=== PATIENT | female | born 1945 | race Hispanic/Latino ===

== ENCOUNTER 2017-03-21 08:26 | Outpatient (CLI) | payer MEDICARE ==
--- NOTE | 2017-03-21 09:08 | XRay Report ---
RIGHT SHOULDER: History: Pain Routine views demonstrate normal bony and soft tissue structures with normal joint alignment of the shoulder. IMPRESSION: Normal study.
== END 2017-03-21 08:27 | disposition home or self-care (01) ==
LOC: SPVIMAG 08:26
PROVIDERS: ATTEND Orthopaedic Surgery Sports Medicine
DX: M25.511 Pain in right shoulder (principal)

== ENCOUNTER 2017-07-26 12:33 | Outpatient (CLI) | payer MEDICARE ==
--- NOTE | 2017-07-29 11:34 | Mammography Report ---
BILATERAL DIGITAL SCREENING MAMMOGRAM with CAD: 07/26/17 12:33:00 CLINICAL: Routine screening. COMPARISON:07/26/16 FINDINGS: The breasts are heterogeneously dense, which may obscure small masses. No mass, architectural distortion or suspicious calcifications. IMPRESSION: No mammographic evidence of malignancy. BI-RADS CATEGORY: 1 - - Negative RECOMMENDATION: Routine mammographic screening in one year. COMMENT: Patient follow-up letters are generated by our [employer] application.
== END 2017-07-26 12:34 | disposition home or self-care (01) ==
LOC: SPVWC 12:33
PROVIDERS: ATTEND Family Medicine
DX: Z12.31 Encounter for screening mammogram for malignant neoplasm of breast (principal)
CPT/HCPCS: 77067

== ENCOUNTER 2018-07-30 09:30 | Outpatient (CLI) | payer MEDICARE ==
--- NOTE | 2018-07-30 10:51 | Mammography Report ---
BILATERAL DIGITAL SCREENING MAMMOGRAM with CAD: 07/30/18 09:30:00 CLINICAL: Routine screening. COMPARISON:07/26/17 FINDINGS: The breasts are heterogeneously dense, which may obscure small masses. No mass, architectural distortion or suspicious calcifications. IMPRESSION: No mammographic evidence of malignancy. BI-RADS CATEGORY: 1 - - Negative RECOMMENDATION: Routine mammographic screening in one year. COMMENT: Patient follow-up letters are generated by our [employer] application.
== END 2018-07-30 09:31 | disposition home or self-care (01) ==
LOC: SPVWC 09:30
PROVIDERS: ATTEND Family Medicine
DX: Z12.31 Encounter for screening mammogram for malignant neoplasm of breast (principal)
CPT/HCPCS: 77067

== ENCOUNTER 2018-10-02 08:03 | Outpatient (CLI) | payer MEDICARE ==
--- NOTE | 2018-10-02 08:51 | Mammography Report ---
BONE DENSITY STUDY: DEFINITIONS: BMD = Bone Mineral Density T-score = BMD related to mean peak bone mass of young adult (mean expressed in Standard Deviation) Z-score = Age matched BMD expressed in SD World Health Organization (WHO) Diagnostic Criteria Normal T-score > -1 SD Osteopenia T-score between -1 and -2.4 SD Osteoporosis T-score -2.5 SD or below FINDINGS: The weighted average BMD of lumbar spine L1-L4 is 1.273 with a T-score of 2.1. The weighted average BMD of hip is 0.963 with a T-score of 0.2. IMPRESSION: The patient's T-score is diagnostic for normal bone density and low relative risk for fracture. NOTE: BMD is not the only risk factor for fracture; also consider factors such as the patient's age, risk of falling, previous osteoporotic fracture, family history of osteoporotic fractures, current smoker, and low body weight. Cheek's triangle is a region of interest in femur, predominantly of trabecular bone. It is not a true anatomic site, and ISCD does not recommend its use clinically.
== END 2018-10-02 08:04 | disposition home or self-care (01) ==
LOC: SPVWC 08:03
PROVIDERS: ATTEND Family Medicine
DX: Z78.0 Asymptomatic menopausal state (principal)
CPT/HCPCS: 77080

== ENCOUNTER 2019-08-03 11:10 | Outpatient (CLI) | payer MEDICARE ==
--- NOTE | 2019-08-03 14:05 | Mammography Report ---
DIGITAL SCREENING MAMMOGRAM WITH CAD, 08/03/2019 INDICATION: Routine screening mammography. TECHNIQUE: Digital bilateral 2D mammography was obtained in the craniocaudal and mediolateral obliq ue projections. This examination was interpreted with the benefit of Computer-Aided Detection analysi s. COMPARISON: 07/30/2018 FINDINGS: Breast Density: The breasts are heterogeneously dense, which may obscure small masses. There is no evidence of dominant mass, suspicious calcifications or architectural distortion in eithe r breast. IMPRESSION: No mammographic evidence of malignancy. Follow up recommendation: Routine yearly BI-RADS Category 1: Negative. A "normal" or negative report should not discourage follow up or biopsy of a clinically significant f inding. A written summary of these findings will be mailed to the patient. The patient will be entered into a mammography reporting system which will generate a reminder letter for the patient's next appointmen t at the appropriate interval. The [employer] recommends yearly mammograms starting at age 40 and continuing as l nat as a woman is in good health. Breast MRI is recommended for women with an approximate 20-25% or greater lifetime risk of breast cancer, including women with a strong family history of breast or ova bob cancer or who have been treated for Hodgkin's disease. Signer Name: Lazarus Briones MD Signed: 08/03/2019 2:01 PM Workstation Name: [id number]
== END 2019-08-03 11:11 | disposition home or self-care (01) ==
LOC: SPVWC 11:10
PROVIDERS: ATTEND Family Medicine
DX: Z12.31 Encounter for screening mammogram for malignant neoplasm of breast (principal)
CPT/HCPCS: 77067

== ENCOUNTER 2020-08-25 10:01 | Outpatient (CLI) | payer MEDICARE ==
--- NOTE | 2020-08-31 10:38 | Mammography Report ---
DIGITAL SCREENING MAMMOGRAM WITH CAD, 08/25/2020 CLINICAL INFORMATION / INDICATION: Routine screening mammography. TECHNIQUE: Digital bilateral 2D mammography was obtained in the craniocaudal and mediolateral obliqu e projections. COMPARISON: 08/03/2019, 07/26/2017, 07/26/2016 FINDINGS: Breast Density: The breasts are heterogeneously dense, which may obscure small masses. No dominant mass, suspicious calcifications, or architectural distortion in either breast. IMPRESSION: No mammographic evidence of malignancy. Follow up recommendation: Routine yearly BI-RADS Category 1: Negative. A "normal" or negative report should not discourage follow up or biopsy of a clinically significant f inding. A written summary of these findings will be mailed to the patient. The patient will be entered into a mammography reporting system which will generate a reminder letter for the patient's next appointmen t at the appropriate interval. The [employer] recommends yearly mammograms starting at age 40 and continuing as l nat as a woman is in good health. Breast MRI is recommended for women with an approximate 20-25% or greater lifetime risk of breast cancer, including women with a strong family history of breast or ova bob cancer or who have been treated for Hodgkin's disease. Signer Name: Abeba Fleming MD Signed: 08/31/2020 10:33 AM Workstation Name: [id number]
== END 2020-08-25 10:02 | disposition home or self-care (01) ==
LOC: SPVWC 10:01
PROVIDERS: ATTEND Family Medicine
DX: Z12.31 Encounter for screening mammogram for malignant neoplasm of breast (principal)
CPT/HCPCS: 77067

== ENCOUNTER 2021-10-11 09:06 | Outpatient (CLI) | payer MEDICARE ==
--- NOTE | 2021-10-11 11:25 | Mammography Report ---
DEXA BONE DENSITY SCAN INDICATION / CLINICAL INFORMATION: POSTMENOPAUSAL STATE. 75 years Female COMPARISON: 10/02/2018 LUMBAR SPINE, L1-L4: - Bone mineral density (BMD) = 1.284 g/cm2. - T-score = 2.2 - Change (%) since most recent prior (if available): +0.9. LEFT HIP, NECK : - Bone mineral density (BMD) = 0.733 g/cm2. - T-score = -1.0 - Change (%) since most recent prior (if available): +0.8 IMPRESSION: 1. WHO Classification: Normal bone density. Fracture Risk: Not Increased. 2. 10-Year Fracture Risk (FRAX) = Major Osteoporotic Not reported.% / Hip: Not reported.% FRAX generally not reported for patients with normal or osteoporotic BMD, in dum-kaognnf-[id number] gar[place] ents younger than age 50, or in patients undergoing pharmacotherapy BMD Reporting Guidelines (ISCD, 2015) BMD Reporting in Postmenopausal Women and in Men Age 50 and Older - T-scores are preferred. - The WHO densitometric classification is applicable. BMD Reporting in Females Prior to Menopause and in Males Younger Than Age 50 - Z-scores, not T-scores, are preferred. This is particularly important in children. - A Z-score of -2.0 or lower is defined as below the expected range for age, and a Z-score above -2.0 is within the expected range for age. - Osteoporosis cannot be diagnosed in men under age 50 on the basis of BMD alone. - The WHO diagnostic criteria may be applied to women in the menopausal transition. http://www.iscd.org/official-positions/2325-jmip-szspczkw-positions-adult/ Signer Name: Philip Jasmine MD Signed: 10/11/2021 11:16 AM Workstation Name: [id number]
--- NOTE | 2021-10-12 14:46 | Mammography Report ---
DIGITAL SCREENING MAMMOGRAM WITH CAD, 10/11/2021 CLINICAL INFORMATION / INDICATION: Routine screening mammography. SCREENING MAMMO TECHNIQUE: Digital bilateral 2D mammography was obtained in the craniocaudal and mediolateral obliqu e projections. This examination was interpreted with the benefit of Computer-Aided Detection analysis . COMPARISON: 08/25/2020, 07/30/2018 FINDINGS: Breast Density: The breasts are heterogeneously dense, which may obscure small masses. No dominant mass, suspicious calcifications, or architectural distortion in either breast. IMPRESSION: No mammographic evidence of malignancy. Follow up recommendation: Routine yearly screening mammogram. BI-RADS Category 1: NEGATIVE A "normal" or negative report should not discourage follow up or biopsy of a clinically significant f inding. A written summary of these findings will be mailed to the patient. The patient will be entered into a mammography reporting system which will generate a reminder letter for the patient's next appointmen t at the appropriate interval. The [employer] recommends yearly mammograms starting at age 40 and continuing as l nat as a woman is in good health. Breast MRI is recommended for women with an approximate 20-25% or greater lifetime risk of breast cancer, including women with a strong family history of breast or ova bob cancer or who have been treated for Hodgkin's disease. Signer Name: Donald Clark MD Signed: 10/12/2021 2:41 PM Workstation Name: [id number]
== END 2021-10-11 09:07 | disposition home or self-care (01) ==
LOC: SPVWC 09:06
PROVIDERS: ATTEND Family Medicine
DX: Z12.31 Encounter for screening mammogram for malignant neoplasm of breast (principal); Z78.0 Asymptomatic menopausal state
CPT/HCPCS: 77067; 77080